=== PATIENT | male | born 1965 | race African-American/Black ===

== ENCOUNTER 2017-01-05 17:28 | Emergency (ER) | payer MEDICAID, MEDICARE ==
--- NOTE | 2017-01-05 18:15 | RAD ---
RIGHT FOOT 3 VIEWS: Date: 01/05/17 HISTORY: Emergency exam. Wound to first metatarsal. COMPARISON: None. FINDINGS: There is extensive soft tissue edema of the great toe. There is periarticular osteopenia of the dista l interphalangeal joint along with erosion of the head and neck of the proximal phalanx of the great toe. Mild periarticular osteopenia of the great toe metatarsal head. There is differential retraction of the lateral hallux sesamoid. Lisfranc interval is maintained. IMPRESSION: 1. Extensive soft tissue edema of the great toe, as well as periarticular osteopenia of the great to e proximal phalanx head and neck concerning for osteomyelitis. MRI recommended. 2. Periosteal thickening of the second and third metatarsal bases and diaphyses, likely chronic in n ature. POS: [facility]
[2017-01-05] MEDS ORDERED: Ibuprofen 600 MG TAB ONE (18:29)
[2017-01-05 19:03] LABS: #Basophils 0.2 thou/uL (0.0-0.2); #Eosinphils 0.1 thou/uL (0.0-0.7); #Neutrophils 7.1 thou/uL (1.40-6.50); %Basophils 1.7 % (0.0-1.0); %Eosinophils 1.1 % (0.0-10.0); %Lymphocytes 26.4 % (21.0-51.0); %Monocytes 8.6 % (0.0-10.0); %Neutrophils 62.3 % (42.0-75.0); Hemoglobin 14.8 g/dL (14.0-18.0); Mean Corpuscular HGB CONC 33.4 g/dL (32.0-36.0); Mean Corpuscular Hemoglobin 28.3 pg (27.0-31.0); Mean Corpuscular Volume 84.9 fl (80.0-94.0); Mean Platelet Volume 8.2 fL (7.4-10.4); Platelet Count 216 thou/uL (130-400); RBC Distribution Width 12.3 % (11.5-14.5); Red Blood Cell (RBC) Count 5.22 mill/uL (4.70-6.10); White Blood Cell (WBC) Count 11.4 thou/uL (4.8-10.8)
[2017-01-05 19:08] LABS: ALT (SGPT) 14 U/L (8-55); AST (SGOT) 12 U/L (5-34); Albumin 3.9 g/dL (3.5-5.0); Alkaline Phosphatase 84 U/L (40-150); Anion Gap 13 mmol/L (10-20); BUN (Urea Nitrogen) 12 mg/dL (8.9-20.6); Bilirubin, Total 0.4 mg/dL (0.2-1.2); CRP (Inflammatory) 1.05 mg/dL (= or < 0.5); Calc. Creatinine Clearance 0 mL/min (70-130); Calcium 8.9 mg/dL (7.8-10.44); Carbon Dioxide 26 mmol/L (22-29); Chloride 102 mmol/L (98-107); Estimated GFR-MDRD 78; Globulin 3.4 g/dL (2.4-3.5); Glucose 99 mg/dL (70-105); Protein, Total 7.3 g/dL (6.0-8.3); Sodium 137 mmol/L (136-145)
== END 2017-01-05 18:46 | disposition home or self-care (01) ==
LOC: MADERS 17:28
DX: S90.31XA Contusion of right foot, initial encounter (principal); M86.671 Other chronic osteomyelitis, right ankle and foot; E78.5 Hyperlipidemia, unspecified; I10 Essential (primary) hypertension; X58.XXXA Exposure to other specified factors, initial encounter
CPT/HCPCS: 36415; 80053; 85025; 85652; 86140; 87040